=== PATIENT | male | born 1975 | race Caucasian/White ===

== ENCOUNTER 2018-06-24 16:10 | Emergency (ER) | payer MEDICAID ==
[2018-06-24] MEDS: ACETAMINOPHEN 325 MG TAB PO (16:46)
[2018-06-24] MEDS: SOD CHLORIDE 0.9% 1,000 ML IV (16:46)
[2018-06-24] MEDS: KETOROLAC 30 MG INJ IV (16:46)
[2018-06-24] MEDS: IPRATROPIUM (NEB) 0.5 MG/2.5 ML AMP HHN (16:56)
[2018-06-24] MEDS: ALBUTEROL 0.083% (NEB) 2.5 MG/3 ML AMP HHN (16:56)
[2018-06-24] MEDS ORDERED: IPRATROPIUM (NEB) 0.5 MG/2.5 ML AMP HHN (17:00)
[2018-06-24] MEDS: AZITHROMYCIN 250 MG TAB PO (17:49)
[2018-06-24] MEDS: CEFTRIAXONE 1 GM/50 ML (PMX) 50 ML IVPB (17:49)
== END 2018-06-24 18:46 | disposition home or self-care (01) ==
LOC: FTE 16:10
DX: J18.1 Lobar pneumonia, unspecified organism (principal); F17.210 Nicotine dependence, cigarettes, uncomplicated
CPT/HCPCS: 71046; 87400; 94664; 96361; 96365; 96375; 99284-25

== ENCOUNTER 2018-08-20 18:59 | Emergency (ER) | payer MEDICAID ==
[2018-08-20] MEDS: KETOROLAC 60 MG INJ IM (21:34)
== END 2018-08-20 23:19 | disposition home or self-care (01) ==
LOC: FTE 18:59
DX: R51 Headache (principal); F17.210 Nicotine dependence, cigarettes, uncomplicated
CPT/HCPCS: 96372; 99284-25

== ENCOUNTER 2018-08-25 18:38 | Emergency (ER) | payer MEDICAID ==
[2018-08-25] MEDS: ACET/BUTAL/CAFF TAB PO (21:02)
== END 2018-08-25 22:13 | disposition home or self-care (01) ==
LOC: FTE 18:38
DX: R51 Headache (principal)
CPT/HCPCS: 70450; 99284-25